=== PATIENT | male | born 2000 | race Two or more races ===

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

== ENCOUNTER → 2019-03-28 | Outpatient (CLI) | payer MEDICAID ==
[2019-03-29 07:09] LABS: RPR Non Reactive (Non Reactive)
[2019-03-30 09:04] LABS: Hepatitis B Surface Antibody Positive
[2019-03-30 11:34] LABS: Hepatitis B Surface Antigen Negative (Negative)
== END | disposition home or self-care (01) ==
LOC: LAB 13:14
PROVIDERS: ATTEND Nurse Practitioner
DX: Z11.3 Encounter for screening for infections with a predominantly sexual mode of transmission (principal)
CPT/HCPCS: 36415; 86703; 86706; 87340